=== PATIENT | female | born 2005 | race Caucasian/White ===

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

== ENCOUNTER 2023-07-01 13:40 | Inpatient (IN) | payer BC, MEDICAID ==
[2023-07-01] MEDS ORDERED: Lidocaine 1% 50 ML MDV INJECT PRN (15:15)
[2023-07-01] MEDS ORDERED: Nalbuphine 10 MG/ML Syringe IVPUSH PRN (15:15)
[2023-07-01] MEDS ORDERED: Ondansetron 4 MG/2 ML SDV IVPUSH PRN (15:15)
[2023-07-01] MEDS: Lactated Ringers 1,000 ML IV SCH (15:30)
[2023-07-01] MEDS: Ampicillin 2 GM in Sodium Chloride 0.9% 100 ML IV ONE (15:33)
[2023-07-01 15:56] LABS: BASOPHILS PERCENT AUTO 0.3 % (0.0-1.0); EOSINOPHILS PERCENT AUTO 0.1 % (0.0-6.0); HEMATOCRIT 39.8 % (37.0-47.0); HEMOGLOBIN 13.5 gm/dl (12.0-16.0); IMMATURE GRAN ABSOLUTE AUTO 0.09 K/mm3 (0.00-0.05); IMMATURE GRAN PERCENT AUTO 0.9 % (0.0-0.4); LYMPHOCYTES ABSOLUTE AUTO 2.2 K/mm3 (1.0-4.8); LYMPHOCYTES PERCENT AUTO 21.3 % (24.0-44.0); MEAN CORPUSCULAR HEMOGLOBIN 27.9 pg (28.0-32.0); MEAN CORPUSCULAR HGB CONC 33.9 g/dl (32.0-36.0); MEAN CORPUSCULAR VOLUME 82.2 fl (83.0-99.0); MEAN PLATELET VOLUME 9.8 fl (9.4-12.3); MONOCYTES ABSOLUTE AUTO 0.8 K/mm3 (0.0-0.8); MONOCYTES PERCENT AUTO 7.9 % (0.0-8.0); NEUTROPHILS PERCENT AUTO 69.5 % (41.0-71.0); PLATELET COUNT,PLT 267 K/mm3 (150-400); RED BLOOD CELL COUNT 4.84 M/mm3 (4.10-5.30); WHITE BLOOD CELL COUNT,WBC 10.09 K/mm3 (3.9-11.3)
[2023-07-01] MEDS ORDERED: ePHEDrine 50 MG/ML SDV IVPUSH PRN (16:19)
[2023-07-01] MEDS ORDERED: diphenhydrAMINE 50 MG/ML SDV IVPUSH PRN (16:19)
[2023-07-01] MEDS: fentaNYL 100 MCG/2 ML SDV EPIDUR PRN (16:27)
[2023-07-01] MEDS: Bupivacaine/fentaNYL/NS 100 ML Bag EPIDUR PRN (16:28)
[2023-07-01 18:21] LABS: CREATININE 0.7 mg/dL (0.55-1.02); EST CRCL DRUG DOSING (CG) 129.32 mL/min; URIC ACID 4.1 mg/dL (2.6-6.0)
[2023-07-01 18:32] LABS: CREATININE,URINE RAND 170.7 mg/dL (30.0-125.0); PROTEIN CREATININE RATIO,URINE 219.7 mg/g (0-149); PROTEIN,URINE RANDOM 37.5 mg/dL (0.0-11.8)
[2023-07-01] MEDS: Ampicillin 1 GM in Sodium Chloride 0.9% 100 ML IV SCH (19:17)
[2023-07-01] MEDS ORDERED: Sodium Chloride 0.9% 10 ML Syringe FLUSH SCH (21:00)
[2023-07-01] MEDS: Oxytocin/Lactated Ringers 30 UNIT/500 ML BAG IV SCH (22:54)
[2023-07-01] MEDS: Acetaminophen 325 MG Tab PO ONE (23:07)
[2023-07-02] MEDS: Benzocaine/Menthol 20%-0.5% Spray 78 GM Cannister TOP PRN (02:01)
[2023-07-02] MEDS: Witch Hazel Medicated Pads 40/Jar TOP PRN (02:02)
[2023-07-02] MEDS: Ibuprofen 600 MG Tab PO PRN (07:36)
[2023-07-02] MEDS: Acetaminophen 325 MG Tab PO PRN (21:15)
== END 2023-07-04 11:58 | disposition home or self-care (01) | DRG 560 ==
LOC: JD.OBCHECK 13:40 → JD.OB 13:43 → JD.OBCHECK 18:26 → OBSVTOIN 07-02 00:48 → JD.OB 07-02 00:49
PROVIDERS: ADMIT Obstetrics & Gynecology; ATTEND Obstetrics & Gynecology
PROC: 10E0XZZ Delivery of Products of Conception, External Approach (ICD-10-PCS; principal; 2023-07-02)
PROC: 0KQM0ZZ Repair Perineum Muscle, Open Approach (ICD-10-PCS; 2023-07-02)
PROC: 3E0R3BZ Introduction of Anesthetic Agent into Spinal Canal, Percutaneous Approach (ICD-10-PCS; 2023-07-02)
PROC: 00HU33Z Insertion of Infusion Device into Spinal Canal, Percutaneous Approach (ICD-10-PCS; 2023-07-02)
DX: O42.02 Full-term premature rupture of membranes, onset of labor within 24 hours of rupture (principal); Z37.0 Single live birth; O70.1 Second degree perineal laceration during delivery; Z3A.39 39 weeks gestation of pregnancy
CPT/HCPCS: 36415; 51702; 59025; 59409; 82565; 82570; 83615; 84112; 84156; 84450; 84460; 84520; 84550; 85025; 85461; 86592; 86850; 86900; 86901; A9270-GY; J0290; J2790; J3010; J3490; J7120; J7999